=== PATIENT | female | born 1990 | race Caucasian/White ===

== ENCOUNTER 2017-06-06 04:37 | Inpatient (IN) | payer OTHER ==
[2017-06-06] MEDS ORDERED: Lactated Ringers 500 ML IV ONE (06:08)
[2017-06-06] MEDS ORDERED: Ondansetron 4 MG/2 ML SDV IV PRN (06:08)
[2017-06-06] MEDS ORDERED: Methylergonovine 0.2 MG/1 ML Amp IM PRN (06:08)
[2017-06-06] MEDS ORDERED: Acetaminophen 325 MG Tab PO PRN (06:08)
[2017-06-06] MEDS ORDERED: Penicillin G Potassium 5 MILLUNITS in Sodium Chloride 0.9% 100 ML IV ONE (06:08)
[2017-06-06] MEDS ORDERED: Sodium Chloride 0.9% 10 ML Syringe FLUSH PRN (06:08)
[2017-06-06] MEDS ORDERED: Carboprost Tromethamine 250 MCG/1 ML Amp IM PRN (06:08)
[2017-06-06] MEDS ORDERED: Misoprostol 400 MCG (4 X 100 MCG TAB) RECTAL PRN (06:08)
[2017-06-06] MEDS ORDERED: Lidocaine 1% 30 ML SDV INJECT PRN (06:08)
[2017-06-06] MEDS ORDERED: Lactated Ringers 1,000 ML IV SCH (06:15)
[2017-06-06] MEDS: Oxytocin/Normal Saline 30 UNIT/500 ML BAG IV SCH ×2 (08:13→14:10)
--- NOTE | 2017-06-06 09:39 | HP ---
PATIENT IDENTIFICATION: Mariana Mcnair is a 27-year-old, G1, P0, intrauterine at 36 and 2/7th weeks, confirmed with 18 and 3/7th-week ultrasound, who presents with vaginal leaking. HISTORY OF PRESENT ILLNESS: The patient states around 2:30 a.m., had vaginal leaking that was described as clear with pinkish tinge, severe enough it soaked through her clothing that she wore and continues to leak thereafter. Associated with this, has been some menstrual cramps felt in the lower abdomen associated with tightening. To put this in context, her GBS status is unknown, her is remarkable for choroid plexus cyst of the fetus. Last ultrasound done on 05/22/2017, with tech noting that it was hard to see. She also had a history of low-lying placenta in the 2nd trimester that resolved and was posterior in nature. Records were called for and reviewed as below and supplemented by patient history. OBSTETRICAL HISTORY: Primipara. ANTEPARTUM LABS: ABO blood type AB positive, negative antibody. Rubella immune. RPR nonreactive. Negative hepatitis B surface antigen. Negative HIV, GC, and Chlamydia. Negative hep C. Wet prep within normal limits. One-hour GTT was 83 on 03/20/2017, with hemoglobin of 12.2 and platelets 263,000 the same day. ALLERGIES: None. MEDICATIONS: vitamins. PAST MEDICAL/PAST SURGICAL HISTORY: Remarkable for menarche at age 11 to 12, flow 4 to 5 days and coming every 28 days. Body piercing in the ears only. No tattoos. No IV drug use. No transfusions. History of chickenpox. AB positive blood type as above. Past surgeries include laparoscopic cholecystectomy in 2013, and wisdom teeth extraction under general with no complications. FAMILY HISTORY: Arthritis in maternal grandmother as well as dementia, depression in her. Paternal grandmother with depression as well. No known disease in mother or brother. Prostate cancer in the father and paternal grandfather. Negative family history of anesthesia problems, bleeding problems, clotting disorders, defects, multiple births, cystic fibrosis, or seizures. SOCIAL HISTORY: Been for 5 years, lives in [place], works as a para at the school. Father of the baby, Kofi, is healthy. His parents are healthy and he is an mormonism apricot washer and press box custodian at the high school. No alcohol, tobacco, or drug use. REVIEW OF SYSTEMS: Reviewed and felt to be noncontributory otherwise other than noted as above. OBJECTIVE: Vital Signs: Blood pressure 118/64, heart rate 59, temperature 98.3. Appearance: Female, appears her stated age, acting appropriate for age, nontoxic in appearance. HEENT: Head atraumatic. EOMs intact. PERRLA. No scleral icterus. No obvious otorhinorrhea. Mucous membranes moist. Neck: No obvious tenderness. Lungs: Clear to auscultation bilaterally. No increased work of breathing. Heart: S1 and S2. Regular rate and rhythm. Abdomen: Gravid, John's indeterminate, nontender, nondistended. Bowel sounds positive. No other organomegaly, pulsatile masses, or obvious hernias. No rebound, rigidity, or guarding. : Normal external female genitalia. Normal position and presentation of urethra. Cervix: Sterile speculum exam done positive for pooling with clear fluid with bloody show. Ferning done, Nitrazine was positive. Vaginal exam thereafter revealed her to be 1.5 cm, 60% to 70% effaced, -1 station, vertex suspected. Bag of water was not felt. Pending is a CBC and fern test. heart tones baseline around 130s. NST was found to be reactive and reassuring. Tocometer reveals contractions every 6 minutes apart on average. There was noted to be a suspected late-type deceleration that was prolonged and resolved currently after 5:40 a.m. ASSESSMENT AND PLAN: 1. Intrauterine at 36 and 2/7th weeks, confirmed with 18 and 3/7th- week ultrasound. 2. premature rupture of membranes with positive pooling, Nitrazine, suspect positive ferning, and no bag of water felt on exam, will need Pitocin to augment her labor. 3. Group B Streptococcus unknown. Antibiotics will be given in the form of penicillin. This has been ordered. 4. 1, para 0. 5. Not a transfer candidate. I did discuss with the patient findings of a prolonged type late deceleration that has now resolved, potential for nonreassuring status and due to this, she is not a transfer candidate. She understands, agrees, and wishes to proceed with augmentation and delivery here. Did discuss with her potential for prematurity, potential need to transfer baby to higher level of care into a NICU and separation of mother and baby were discussed as well. She understands and agrees and wishes to proceed with Pitocin augmentation and following clinically and closely here with anticipated delivery here. We will follow maternal- status closely with the above noted. [facility] /[id number]
--- NOTE | 2017-06-06 11:03 | OBOUT ---
DATE: 06/06/2017 DATE AND TIME OF NST: Time: 5:20 to 5:40. REASON FOR NST: 1. Intrauterine at 36 and 2/7th weeks confirmed with 18-3/7th-week ultrasound. 2. PPROM. 3. GBS unknown. 4. G1, P0. NST INTERPRETATION: During this time period, tone baseline is approximately 125 to 130 and there are at least two 15 x 15 beat per minute accelerations, making this strip reactive. It is also noted to be reassuring. Tocometer reveals potential of 3 contractions, minimally felt by patient. ASSESSMENT: 1. Non-stress test-reactive and reassuring. 2. Tocometer with contractions. PLAN: Please see admit history and physical for further details. [facility] /[id number]
[2017-06-06] MEDS: Penicillin G Potassium 3 MILLUNITS in Sodium Chloride 0.9% 100 ML IV SCH ×2 (11:40→15:52)
[2017-06-06] MEDS ORDERED: Oxytocin/Normal Saline 60 UNIT/1,000 ML BAG ONE (12:47)
[2017-06-06] MEDS ORDERED: Citric Acid/Sodium Citrate Solution 30 ML Cup PO ONE (12:49)
[2017-06-06] MEDS ORDERED: ceFAZolin 2 GM in Premix Bag 1 BAG IV ONE (12:49)
[2017-06-06] MEDS ORDERED: fentaNYL 100 MCG/2 ML SDV ONE (13:05)
[2017-06-06] MEDS ORDERED: Morphine PF 5 MG/10 ML SDV ONE (13:05)
[2017-06-06] MEDS ORDERED: Ketorolac 30 MG/ML SDV ONE (13:06)
--- NOTE | 2017-06-06 13:06 | PN ---
DATE: 06/06/2017 SUBJECTIVE: The patient's contractions are rated 6/10, felt in the lower abdomen. Pitocin has been started. Tocometer reveals contractions every 3 to 3.5 minutes. Vaginal exam reveals to be 2.5 cm, 90% effaced, -1 station, vertex suspected. heart tones in the 120s to 130s and felt to be reassuring with acceleration seen with vaginal exam. ASSESSMENT AND PLAN: Intrauterine at 36 and 2/7th weeks, confirmed with 18 and 3/7th week ultrasound with premature rupture of membranes now on Pitocin with GBS unknown status with antibiotics given and started. The patient is considered not to be a transfer candidate. Please see previous dictations in regard to this. We will continue to follow clinically and closely at this point in time. The patient and her male partner understand and agree with the above treatment plan. [facility] /[id number]
[2017-06-06] MEDS ORDERED: Naloxone 2 MG/2 ML Syringe IVPUSH PRN (14:13)
[2017-06-06] MEDS ORDERED: Acetaminophen/oxyCODONE 325-5 MG Tab PO PRN (14:13)
[2017-06-06] MEDS ORDERED: ePHEDrine 50 MG/ML SDV IVPUSH PRN (14:13)
[2017-06-06] MEDS ORDERED: diphenhydrAMINE 50 MG/ML SDV IVPUSH PRN (14:13)
[2017-06-06] MEDS ORDERED: Morphine 2 MG/ML Syringe IVPUSH PRN (14:24)
[2017-06-06] MEDS: Lactated Ringers 1,000 ML IV SCH (14:50)
--- NOTE | 2017-06-06 15:09 | PN ---
DATE: 06/06/2017 SUBJECTIVE: The patient's contractions have gotten stronger. She was started on Pitocin up to 4 milliunits per minute and decreased due to nonreassuring status with deep variable decelerations, described by nurse running into 80s to 90s, lasting over 40 to 50 seconds. Subsequently, Pitocin was stopped. Positional changes ensued as well as IV fluids and despite this, decelerations persisted. OBJECTIVE: heart tones in the 130s range with what appears to be some recurrent late decelerations and prior having deep variable decelerations. Vaginal exam reveals her to be essentially unchanged from previous evaluation, being 4 cm, 90% effaced, -1 station. Tocometer reveals contractions every 3 to 4 minutes apart. ASSESSMENT AND PLAN: Nonreassuring status in a patient with premature rupture of membranes at approximately 2:30 a.m. Now, status post Pitocin augmentation with nonreassuring status, which has subsequently been stopped and continue nonreassuring status with what appears to be intolerance to labor. Of note, the patient did have a similar late deceleration upon admission without any augmentation of labor and she was not a transfer candidate because of this. Please see H and P for further details. Because of nonreassuring status, I discussed with her and her male partner the risks, benefits, alternatives, complications of , including, but not limited to, infection, bleeding, damage to internal organs such as bowel, bladder, tubes, uterus, ovaries, sometimes fetus rarely needing a blood transfusion or further surgery, and even rarer maternal or . She understands and agrees and wishes to proceed. Verbal and written consent obtained. Questions were answered. We will proceed to the OR as soon as crew is ready and available. [facility] /[id number]
[2017-06-06] MEDS: Ketorolac 30 MG/ML SDV IVPUSH SCH (20:01)
[2017-06-07] MEDS: Ketorolac 30 MG/ML SDV IVPUSH SCH ×2 (02:13→08:07)
[2017-06-07] MEDS: Lactated Ringers 1,000 ML IV SCH (02:30)
[2017-06-07] MEDS: Docusate Sodium 100 MG Cap PO PRN ×2 (08:06→20:43)
[2017-06-07] MEDS: Simethicone 80 MG Tab.Chew PO PRN ×2 (08:06→20:42)
[2017-06-07] MEDS: Prenatal Multivitamin with Calcium/Folic Acid/Iron Tab PO SCH (08:50)
--- NOTE | 2017-06-07 09:18 | PCM.SN ---
[id number] eating, ambulating well. catheter out --going well vss, afebrile breathing easily HR regular abdomen soft dressing dry/intact Doing well will continue routine and post-op care likely home Post-op day #3 b
--- NOTE | 2017-06-07 09:36 | OR ---
DATE: 06/06/2017 PREOPERATIVE DIAGNOSES: 1. Intrauterine 36 and 2/7th weeks, confirmed with 18 and 3/7th week ultrasound. 2. Nonreassuring status. 3. premature rupture of membranes, approximately at 2:30 a.m. on date of admission, requiring Pitocin augmentation. 4. Group B Streptococcus unknown with antibiotics given. 5. Not a transfer candidate due to the above. 6. G1, P0. POSTOPERATIVE DIAGNOSES: 1. Intrauterine 36 and 2/7th weeks, confirmed with 18 and 3/7th week ultrasound - delivered. 2. Nonreassuring status. 3. premature rupture of membranes, approximately at 2:30 a.m. on date of admission, requiring Pitocin augmentation. 4. Group B Streptococcus is unknown with antibiotics given. 5. Not a transfer candidate due to the above. 6. G1, P0. PROCEDURE PERFORMED: NST, Pitocin augmentation on date of admission, followed by primary low-transverse with 2-layer uterine closure. STATISTICAL ENGINEER: Lucia Randolph MD ANESTHESIA: Spinal. EBL: 750 mL. IV FLUIDS: 500 mL. URINE OUTPUT: Clear yellow 150 mL. START TIME: 1345 hours UTERINE INCISION: 1348 hours DELIVERY TIME: 1348 hours. STOP TIME: 1405 hours. FINDING: Male, Apgars 9 and 9, weight pending. DESCRIPTION OF PROCEDURE IN DETAIL: After proper consent was obtained, the patient was brought to the operating room where spinal anesthetic was administered. A Bertrand was placed under preop under sterile conditions. Abdomen was prepped and draped in normal sterile fashion with the patient placed in supine position with left lateral tilt. A skin incision was made over lower abdomen in transverse Pfannenstiel-type fashion. This was carried down to the fascia and scored in midline. Subcutaneous tissue was raked laterally with Godoy retractor and fascial incision was extended in transverse fashion using curved Purdy's. Marcie clamps x2 were used to grasp superior aspect of the fascia, and rectus muscles were dissected from the fascia using sharp and blunt technique. In a similar fashion, Marcie clamps x2 were used to grasp the inferior portion of the incision and rectus and pyramidalis muscles were dissected from fascia using sharp and blunt technique. Rectus muscles were in the midline with blunt technique. Abdominal cavity was entered in blunt technique and incision was extended superiorly and inferiorly using blunt technique. Louis O large retractor was then introduced and used. Vesicouterine peritoneum was then identified, incised in transverse fashion using Metzenbaum scissors and bladder flap was made digitally. A curvilinear incision was made on the lower uterine segment at 1348 hours. Uterus was entered sharply. Clear fluid returned. Uterine incision was then extended in transverse fashion using blunt technique. vertex was then was then brought up from the pelvis and through the incision followed by rest of the without difficulty. Mouth and nares were suctioned. Cord was doubly clamped and cut and was brought over to team. Then, approximately 10 mL of cord blood was obtained for labs. Placenta was then delivered with gentle cord traction and fundal massage. Uterine cavity was cleared of all blood clots and debris with lap sponge. Elizabeth clamps were used to grasp the uterine incision. This was closed in a running locked fashion, tied at lateral margins with 1-0 Vicryl. Second imbricating layer was then applied and tied at lateral margins with 1-0 Vicryl. First inspection of the uterine incision revealed hemostasis. Louis O retractor was then removed and paracolic gutters were then cleared of all blood clots and debris with lap sponge. Anterior cul-de-sac was then irrigated copiously and all blood clots and debris removed. Second and final inspection of the uterine incision and anterior cul-de-sac revealed hemostasis. Rectus muscles were then reapproximated in midline with a [id number] stitch using 1-0 Vicryl. Subfascial tissue was found to be hemostatic. Fascia was closed in a running fashion, tied at lateral margin with 0 looped PDS. Subcutaneous tissue was irrigated copiously. Hemostasis was reassured. Skin was reapproximated with medium tracey. Sterile Aquacel dressing was applied. Uterus fundus was firm and massaged at the conclusion of the case at approximately the umbilicus. No immediate complications were noted. Sponge, lap, and needle counts correct. The patient received 2 g of Ancef preoperatively, Pitocin per protocol, and will receive Toradol at the conclusion of case for pain control. Mother and infant are currently stable at the time of my dictation. [facility] /[id number]
[2017-06-07] MEDS: Acetaminophen/oxyCODONE 325-5 MG Tab PO PRN ×2 (15:01→19:21)
[2017-06-07] MEDS: Ibuprofen 800 MG Tab PO PRN (16:14)
[2017-06-08] MEDS: Acetaminophen/oxyCODONE 325-5 MG Tab PO PRN ×6 (01:10→23:27)
[2017-06-08] MEDS: Ibuprofen 800 MG Tab PO PRN ×3 (01:11→17:35)
[2017-06-08] MEDS: Prenatal Multivitamin with Calcium/Folic Acid/Iron Tab PO SCH (09:32)
[2017-06-08] MEDS: Simethicone 80 MG Tab.Chew PO PRN (09:32)
[2017-06-08] MEDS: Docusate Sodium 100 MG Cap PO PRN ×2 (09:33→19:33)
[2017-06-08] MEDS ORDERED: Ketorolac 30 MG/ML SDV IVPUSH ONE (16:00)
[2017-06-08] MEDS ORDERED: Morphine PF 5 MG/10 ML SDV IV ONE (16:00)
[2017-06-09] MEDS: Ibuprofen 800 MG Tab PO PRN ×2 (05:07→14:39)
[2017-06-09] MEDS: Acetaminophen/oxyCODONE 325-5 MG Tab PO PRN ×3 (05:08→14:39)
[2017-06-09] MEDS: Docusate Sodium 100 MG Cap PO PRN (09:06)
[2017-06-09] MEDS: Prenatal Multivitamin with Calcium/Folic Acid/Iron Tab PO SCH (09:07)
[2017-06-09 15:41] VITALS: BP 112/50
[2017-06-09] MEDS ORDERED: Oxytocin/Normal Saline 30 UNIT/500 ML BAG IV ONE (16:29)
--- NOTE | 2017-06-24 17:21 | DISCH ---
FINAL DIAGNOSES: 1. A 27-year-old, 1, now para 1. 2. A 36-week 2-day gestation. 3. Primary low-transverse section for premature rupture of membranes and non-reassuring heart pattern. 4. Viable male , born on 06/06/2018, at 1348 hours, with scores of 9 and 9. 5. Unknown group B streptococcus status, received antibiotic prophylaxis. 6. Blood type AB positive. 7. Rubella immune. 8. mild anemia. FINDINGS: This delightful 27-year-old 1, presented at 36 and 2/7 weeks' gestation with vaginal fluid leakage and was found to have ruptured membranes with positive ferning test and was subsequently admitted by Dr. Friedman. Please see his admission H and P and her Epic episode for details. She was subsequently started on some Pitocin augmentation. She developed a non- reassuring heart tone pattern and underwent a primary low-transverse section, delivering a viable male infant at 1348 hours on 06/06/2017, by Dr. Friedman, assisted by Dr. Randolph. They did a primary low-transverse C- section with a 2-layer uterine closure. She received 2 g of Ancef preop, Pitocin per protocol, and there were no intraoperative complications. Her estimated blood loss was 750 mL and it was done under spinal anesthesia. Please see his operative note for details. Her postop course was uneventful. Her spinal anesthesia completely resolved. She was ambulating without difficulty. Her Bertrand catheter was removed and bladder and bowel function returned. She was voiding, ambulating, and eating without difficulty. She is and was seen by our risk consultant and this was going well on discharge. Her hemoglobin on arrival was 13.0 with a recheck postop of 11.1. White count 12.7 on arrival, was 14.1 postop. Platelet count was within normal limits. She remained afebrile throughout her hospitalization with stable vital signs. Her clinical exam was unremarkable. Her incision remained intact with no sign of infection or dehiscence. Her fundus was firm. Her flow is decreasing, and she was examined and felt to be ready for discharge on 06/09/2017, with Aquacel dressing in place. She was discharged home in good condition with routine discharge instructions. Prescription was written for Percocet. She will also take ibuprofen as needed and will continue with her vitamins and iron supplementation. She will follow up in 1 week for staple removal and sooner with any problems. Condition at discharge was good. All of her questions were answered, and will follow with other routine and postop recommendations. [facility] /[id number]
--- NOTE | 2017-06-26 08:55 | PN ---
DATE: 06/08/2017 Mariana is a 27-year-old, 1, now para 1, who underwent a 2 days ago. She is recovering well. Postop day #2, is nursing, having no difficulty, Bertrand catheter is removed. Her flow is decreasing. She has no new complaints. Temp is 98.2, pulse is 56 this morning with 91 on recheck, blood pressure 115/54, respiratory rate 18, O2 sat is 100 on room air. Abdomen is soft, benign. Her fundus is firm. Her dressing is dry. She has no significant edema. The baby has been without difficulty. We will continue with her routine postop and cares. All of their many questions were answered. We will plan on her being discharged home tomorrow as per our previous discussions. [facility] /[id number]
== END 2017-06-09 16:30 | disposition home or self-care (01) | DRG 766 ==
LOC: DL.OBCHECK 04:37 → DL.OB 06:00 → OBSVTOIN 13:48 → DL.OB 13:48
PROVIDERS: ADMIT Family Medicine; ATTEND Family Medicine
PROC: 10D00Z1 Extraction of Products of Conception, Low, Open Approach (ICD-10-PCS; principal; 2017-06-06)
PROC: 4A1HXFZ Monitoring of Products of Conception, Cardiac Rhythm, External Approach (ICD-10-PCS; 2017-06-06)
PROC: 3E0S3BZ Introduction of Anesthetic Agent into Epidural Space, Percutaneous Approach (ICD-10-PCS; 2017-06-06)
DX: O42.913 Preterm premature rupture of membranes, unspecified as to length of time between rupture and onset of labor, third trimester (principal); O76 Abnormality in fetal heart rate and rhythm complicating labor and delivery; Z3A.36 36 weeks gestation of pregnancy; Z37.0 Single live birth
CPT/HCPCS: 36415; 82274; 83986; 85027; A9270-GY; J0690; J1885; J2274; J2540; J2590; J7050; J7120